=== PATIENT | male | born 1965 | race Caucasian/White ===

== ENCOUNTER → 2020-07-25 09:29 | Outpatient (CLI) | payer MEDICAID, SELFPAY ==
--- NOTE | 2020-07-25 10:00 | MRI_ITS ---
STUDY: MRI LEFT SHOULDER REASON FOR EXAM: Male, 54 years old. shoulder injury 10 months ago, decreased rom TECHNIQUE: Standardized fat and water weighted pulse sequences were obtained in all 3 orthogonal planes. COMPARISON: None. FINDINGS: Tendinosis of the supraspinatus with partial the bursal surface and intrasubstance distal tendon tear, series 5 images 10/17 and 11/16. Normal infraspinatus tendon. Normal subscapularis tendon. Normal teres minor tendon. Normal supraspinatus muscle. Normal infraspinatus muscle. Normal subscapularis muscle. Normal teres minor muscle. Normal glenohumeral articulation. There is small joint effusion. Normal humeral head and visualized proximal humerus. Normal biceps labral complex. Normal intracapsular long biceps tendon. There is tear of the superior labrum adjacent to the biceps anchor, series 4 images 06/16 through 10/17. Normal capsulo- ligamentous complex. Normal rotator interval. There is mild osteoarthritis of the acromioclavicular articulation. There is a Type II morphology (curved), with a neutral orientation. There is no subacromial-subdeltoid bursal fluid. Normal visualized coracohumeral and coracoacromial ligaments. Normal quadrilateral space. Normal axillary space. Normal deltoid muscle. Normal trapezius muscle. 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 No full-thickness rotator cuff tear. SLAP lesion with tear of the superior labrum. Electronically Signed: Richard Goddard MD at 11:01 EDT , Service support ,
== END ==
PROVIDERS: PCP Family Medicine
DX: M75.102 Unspecified rotator cuff tear or rupture of left shoulder, not specified as traumatic (principal)
CPT/HCPCS: 73221